=== PATIENT | female | born 1995 | race Two or more races ===

== ENCOUNTER 2023-09-27 12:16 | Emergency (ER) | payer MEDICAID, SELFPAY ==
[2023-09-27 12:33] VITALS: BP 118/76; PULSE 66; RESP 24; TEMP 36.3; O2SAT 96; BMI 34.0
--- NOTE | 2023-09-27 12:49 | ED_ITS ---
HPI - General Adult General Chief complaint: Abdominal Pain Stated complaint: Abdominal pain Time Seen by Provider: 09/27/23 12:42 Source: patient Mode of arrival: ambulatory Limitations: no limitations History of Present Illness HPI narrative: 28-year-old female presenting today with abdominal pain. Pain is located in the epigastric region radiates a little bit into the left upper quadrant. Pain started last night. She states that she has had pain like this in the past but that it went away, this time it has been persistent. She states that she did vomit 1 time yesterday. She denies any fevers or chills. Appetite has been normal. Ate breakfast this morning without any difficulty. He does not make it better or worse. She denies any diarrhea or constipation. Patient takes Tylenol and ibuprofen p.r.n., no NSAIDs on a daily basis. She is on daily metformin for diabetes. Denies alcohol use. Denies any intra-abdominal surgeries. Related Data Home Medications Medication Instructions Recorded Confirmed metformin .ROUTE 09/27/23 Allergies Allergy/AdvReac Type Severity Reaction Status Date / Time Penicillins Allergy Verified 09/27/23 12:32 Review of Systems Status of ROS: Reports: 10 or more systems reviewed and unremarkable except as noted in History and below [facility] Social History Smoking Status: Current some day smoker What tobacco products do you use: cigarettes Do you use any of these nicotine containing products: None Second hand tobacco smoke exposure: No How often do you have a drink containing alcohol: never How often do you have six or more drinks on one occasion: Never AUDIT-C Alcohol total score: 0 Non-prescribed substance use: denies use service: No Exam Narrative: Exam Narrative: Well-nourished well-developed patient in no acute distress. Alert and oriented. Answers questions appropriately. Mood and affect are appropriate. Thoughts are goal oriented and rational. No tangential or magical thinking noted. Patient speaks in full sentences without needing to catch her breath. Patient is not appear ill or toxic. HEENT: Normocephalic atraumatic. Pupils are equally round reactive to light. Extraocular muscles are intact. Conjunctivae are moist without any icterus noted. Moist mucous membranes. Posterior pharynx is normal. Neck is soft without any lymphadenopathy or thyromegaly. No masses are appreciated. Cardiovascular: Heart is regular rate and rhythm S1 and S2 are present without any murmurs. Lungs: Clear to auscultation bilaterally no wheezes rhonchi or rales are appreciated. Patient takes deep breaths without any discomfort. Abdomen: Soft and nondistended with normal bowel sounds. No guarding or rebound. No masses or organomegaly appreciated. Minimal epigastric discomfort. Negative Morgan sign. Extremities: Bilateral lower extremities are without edema. Normal DP and PT pulses. Skin: Well perfused without any obvious rashes. Const: Vital Signs, click to edit/add: Vital Signs - 24 hr 09/27/23 12:33 Temperature 97.3 F L Pulse Rate [Pulse Oximeter] 66 Respiratory Rate 24 Blood Pressure [Ri ght Upper Arm] 118/76 Pulse Oximetry 96 Oxygen Delivery Me thod Room Air Course Course ED Course: Differential diagnosis includes gastritis, peptic ulcer disease, pancreatitis, less likely cholecystitis. CBC unremarkable. CRP unremarkable. LFTs are normal. Lipase is elevated at 628. Discussed results with patient. At this time recommendation is a L of fluid and NPO except for fluids for the next 24 hours. 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 We discussed the possibility of pancreatitis in the possibility of this worsening. Patient states that she understands and will stay NPO except for fluids today. Recommend she follow up in the clinic in the morning tomorrow for repeat lipase and follow-up exam. Return to the ER for pain is getting worse. Vital Signs Vital signs: Initial Vital Signs Temperature 97.3 F L 09/27/23 12:33 Temperature Source Temporal Artery Scan 09/27/23 12:33 Pulse Rate 66 09/27/23 12:33 Pulse Rhythm Regular 09/27/23 12:33 Respiratory Rate 24 09/27/23 12:33 Blood Pressure 118/76 09/27/23 12:33 Blood Pressure Mean 90 09/27/23 12:33 Blood Pressure Position Supine 09/27/23 12:33 Pulse Oximetry 96 09/27/23 12:33 Oxygen Delivery Method Room Air 09/27/23 12:33 Vital Signs Temperature 97.3 F L 09/27/23 12:33 Pulse Rate 66 09/27/23 12:33 Respiratory Rate 24 09/27/23 12:33 Blood Pressure 118/76 09/27/23 12:33 Pulse Oximetry 96 09/27/23 12:33 Oxygen Delivery Method Room Air 09/27/23 12:33 Temperature 97.3 F L 09/27/23 12:33 Pulse Rate 66 09/27/23 12:33 Respiratory Rate 24 09/27/23 12:33 Blood Pressure 118/76 09/27/23 12:33 Pulse Oximetry 96 09/27/23 12:33 Oxygen Delivery Method Room Air 09/27/23 12:33 Medications Administered Medications: Discontinued Medications Generic Name Dose Route Start Last Admin Trade Name Freq PRN Reason Stop Dose Admin Sucralfate 1 gm 09/27/23 12:48 09/27/23 13:43 Sucralfate 1 Gm Tablet PO 09/27/23 12:49 1 gm ONCE ONE Administration Medical Decision Making MDM Narrative Medical decision making narrative: [age] year female with epigastric discomfort and a slightly elevated lipase. Question early pancreatitis versus gastritis. Plan per above. Lab Data Lab results reviewed: Yes I reviewed the patient's lab results Labs: Lab Results 09/27/23 Range/Units 12:55 WBC 8.06 (4.50-11.00) K/uL RBC 3.99 L (4.00-5.20) m/uL Hgb 12.2 (12.0-16.0) gm/dL Hct 36.3 (33.0-51.0) % MCV 91 (80-100) fL MCH 31 (26-34) pg MCHC 34 (32-36) gm/dL RDW Coeff of Orlin 12.7 (11.5-15.5) % Plt Count 308 (140-440) K/uL Neut % (Auto) 69.1 (42.0-72.0) % Lymph % (Auto) 22.3 (20-44) % Roane % (Auto) 7.7 (0.0-11.0) % Eos % (Auto) 0.7 (0.0-7.0) % Baso % (Auto) 0.1 (0.0-3.0) % Neut # (Auto) 5.56 (1.7-7.0) K/uL Lymph # (Auto) 1.80 (0.90-2.90) K/uL Roane # (Auto) 0.60 (0.00-0.90) K/UL Eos # (Auto) 0.06 (0.00-0.50) K/uL Baso # (Auto) 0.01 (0.00-0.30) K/uL Abs Immat Gran (auto) 0.01 (0.00-0.30) K/uL Imm/Tot Granulo (auto) 0.1 % Sodium 138 (135-149) mmol/L Potassium 3.9 (3.6-5.1) mmol/L Chloride 107 (96-114) mmol/L Carbon Dioxide 23 (20-32) mmol/L Anion Gap 8 (7-15) mEq/L BUN 9 (5-24) mg/dL Creatinine 0.4 L (0.5-1.5) mg/dL Estimated Creat Clear 179.20 Estimated GFR 137 ml/min Glucose 95 (60-115) mg/dL Calcium 8.5 (8.4-10.6) mg/dL Total Bilirubin 0.2 (0.1-1.5) mg/dL Direct Bilirubin 0.0 (0.0-0.5) mg/dL AST 19 (12-35) U/L ALT 22 (4-35) U/L Alkaline Phosphatase 53 (40-150) U/L C-Reactive Protein 0.8 (0.5-1.0) mg/dL Total Protein 7.4 (6.0-8.3) g/dL Albumin 4.1 (3.3-5.0) g/dL Lipase 628 H (23-300) U/L Discharge Plan Discharge Clinical Impression: Abdominal pain Patient Disposition: Home, Self-Care Condition: Stable Additional Instructions: Your blood work today's shows that your pancreatic enzymes are slightly elevated which could signify that you are having pancreatitis which is an inflammation of the pancreas. You should not have anything to eat for the next 24 hours, but you should drink a lot of water. I do want you to follow-up in the clinic tomorrow: Call the [facility] in the morning to make an ER follow-up appointment- you will need to be seen by a doctor. If your pain is stable you can be seen either Thursday or Thursday. If your pain gets worse, you start vomiting, or you develop a fever, then you should return to the ER. Prescriptions: No Action metformin .ROUTE Follow Up/Referrals: Provider,Not a Local [Primary Care Provider] - Stand Alone Forms: MyHealth Info Instructions
[2023-09-27 13:04] LABS: Basophils Absolute Auto 0.01 K/uL (0.00-0.30); Basophils Percent Auto 0.1 % (0.0-3.0); Eosinophils Absolute Auto 0.06 K/uL (0.00-0.50); Eosinophils Percent Auto 0.7 % (0.0-7.0); Hematocrit 36.3 % (33.0-51.0); Hemoglobin* 12.2 gm/dL (12.0-16.0); Immature Granulocytes Abs Auto 0.01 K/uL (0.00-0.30); Immature Granulocytes Pct Auto 0.1 %; Lymphocytes Percent Auto 22.3 % (20-44); Mean Corpuscular HGB Conc 34 gm/dL (32-36); Mean Corpuscular Hemoglobin 31 pg (26-34); Mean Corpuscular Volume 91 fL (80-100); Monocytes Percent Auto 7.7 % (0.0-11.0); Neutrophils Absolute Auto 5.56 K/uL (1.7-7.0); Neutrophils Percent Auto 69.1 % (42.0-72.0); Platelet Count* 308 K/uL (140-440); RDW Coefficient of Variation % 12.7 % (11.5-15.5); Red Blood Count 3.99 m/uL (4.00-5.20); White Blood Count* 8.06 K/uL (4.50-11.00)
[2023-09-27 13:08] LABS: Slide Review Reflex No
[2023-09-27 13:24] LABS: Albumin* 4.1 g/dL (3.3-5.0); Chloride* 107 mmol/L (96-114)
[2023-09-27 13:25] LABS: Potassium* 3.9 mmol/L (3.6-5.1); Sodium* 138 mmol/L (135-149)
[2023-09-27 13:27] LABS: Creatinine* 0.4 mg/dL (0.5-1.5); Estimated Glomerular Filt Rate 137 ml/min
[2023-09-27 13:28] LABS: Alanine Aminotransferase* 22 U/L (4-35); Alkaline Phosphatase* 53 U/L (40-150); Anion Gap 8 mEq/L (7-15); Aspartate Amino Transferase* 19 U/L (12-35); Bilirubin Total* 0.2 mg/dL (0.1-1.5); Blood Urea Nitrogen* 9 mg/dL (5-24); Calcium* 8.5 mg/dL (8.4-10.6); Carbon Dioxide* 23 mmol/L (20-32); Glucose* 95 mg/dL (60-115); Lipase* 628 U/L (23-300); Total Protein* 7.4 g/dL (6.0-8.3)
[2023-09-27 13:31] LABS: C Reactive Protein* 0.8 mg/dL (0.5-1.0)
[2023-09-27] MEDS: SUCRALFATE 1 GM TABLET PO (13:43)
[2023-09-27 14:43] LABS: Appearance Urine Clear (Clear); Bilirubin Urine Negative (Negative); Blood Urine 2+ (Negative); Color Urine Yellow (Yellow); Glucose Urine Negative (Negative); Ketones Urine Negative (Negative); Leukocyte Esterase Urine Negative (Negative); Nitrite Urine Negative (Negative); Protein Urine Negative (Negative); Specific Gravity Urine 1.015 (1.000-1.030); Urobilinogen Urine 0.2 (0.2-1.0)
[2023-09-27 14:50] LABS: Squamous Epithelial Cell Urine Few (None-Few); WBC Urine 0-2 (0-5)
== END 2023-09-27 14:53 | disposition home or self-care (01) ==
PROVIDERS: Emergency Provider Family Medicine
DX: R10.13 Epigastric pain (principal)
CPT/HCPCS: 36415; 80048; 80076; 81003; 81015; 83690; 85025; 86140; 99283; 99284; A9270